=== PATIENT | male | born 1985 | race Caucasian/White ===

== ENCOUNTER 2025-02-28 11:23 | Inpatient (IN) | payer BC ==
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
[2025-02-28 12:04] LABS: Basophils # (A) 0.05 10*3/uL (0.00-0.10); Basophils % (A) 0.5 %; Eosinophils # (A) 0.07 10*3/uL (0.04-0.35); Eosinophils % (A) 0.6 %; HCT 36.6 % (39.6-50.0); HGB 11.9 g/dL (13.0-17.0); Lymphocytes # (A) 1.85 10*3/uL (0.90-5.00); Lymphocytes % (A) 17.1 %; MCH 27.8 pg (27.0-32.0); MCHC 32.5 g/dL (32.0-37.0); MCV 85.5 fL (80.0-97.0); Monocytes # (A) 0.85 10*3/uL (0.20-1.00); Monocytes % (A) 7.8 %; Neutrophils # (A) 7.95 10*3/uL (1.80-7.70); Neutrophils % (A) 73.4 %; Platelet Count 293 10*3/uL (140-440); RBC 4.28 10*6/uL (4.40-5.60); RDW 13.2 % (11.5-14.5); WBC 10.84 10*3/uL (4.50-10.00)
[2025-02-28 12:27] LABS: ALT 32 U/L (4-49); AST 44 U/L (17-59); African American GFR (CKD) >90 (>60 ml/min/1.73 sqM); Albumin 4.2 g/dL (3.5-5.0); Alkaline Phosphatase 59 U/L (38-126); Anion Gap 16 mmol/L; Blood Urea Nitrogen 10 mg/dL (9-20); Calcium 9.8 mg/dL (8.4-10.2); Carbon Dioxide 21 mmol/L (22-30); Chloride 106 mmol/L (98-107); Glucose 103 mg/dL (74-99); Non-African American GFR(CKD) >90 (>60 ml/min/1.73 sqM); Potassium 4.5 mmol/L (3.5-5.1); Sodium 143 mmol/L (137-145); Total Protein 6.9 g/dL (6.3-8.2)
[2025-02-28] MEDS: LORazepam 1 MG/0.5 ML VIAL IM STA (14:21)
[2025-02-28] MEDS ORDERED: NALOXONE 0.4 MG/ML 1 ML VIAL IV PRN (14:47)
[2025-02-28] MEDS ORDERED: ACETAMINOPHEN TAB 325 MG TAB PO PRN (14:47)
[2025-02-28] MEDS: SODIUM CHLORIDE 0.9% 1,000 ML IV SCH (18:42)
[2025-02-28 19:16] LABS: Bilirubin,Urine Negative (Negative); Blood,Urine Negative (Negative); Color,Urine Yellow; Glucose,Urine (UA) Negative (Negative); Hyaline Casts,Urine 4 /lpf (0-2); Ketones,Urine 3+ (Negative); Leukocyte Esterase,Urine Negative (Negative); Mucus,Urine Few /hpf; Nitrite,Urine Negative (Negative); PH, Urine 5.5 (5.0-8.0); Protein,Urine 1+ (Negative); RBC,Urine 2 /hpf (0-5); Specific Gravity,Urine 1.028 (1.001-1.035); Urobilinogen,Urine 2.0 mg/dL (<2.0); WBC,Urine 4 /hpf (0-5)
[2025-02-28 19:21] LABS: Benzodiazepines Screen,Urine Detected (NotDetected); Opiate Screen,Urine Not Detected (NotDetected); Phencyclidine Screen,Urine Not Detected (NotDetected); Urn Cannabinoid Scrn Not Detected (NotDetected)
[2025-02-28 19:22] LABS: Barbiturate Screen,Urine Not Detected (NotDetected); Oxycodone Screen, Urine Not Detected (NotDetected); Tricyclic Antidepressant,Urine Not Detected (NotDetected)
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
[2025-03-01] MEDS: LORazepam 1 MG/0.5 ML VIAL IV PRN (00:19)
[2025-03-01] MEDS ORDERED: HALOPERIDOL LACTATE 5 MG/ML 1 ML VIAL IM PRN ×2 (00:27→10:31)
[2025-03-01] MEDS: HALOPERIDOL LACTATE 5 MG/ML 1 ML VIAL IM STA (00:29)
[2025-03-01 00:38] VITALS: RESP 20
[2025-03-01] MEDS ORDERED: IBUPROFEN 800 MG TAB PO PRN (00:52)
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
[2025-03-01] MEDS: IPRATROPIUM-ALBUTEROL 3 ML NEB INHALATION SCH (07:52)
[2025-03-01] MEDS: LORATADINE 10 MG TAB PO SCH (08:12)
[2025-03-01] MEDS: PRAVASTATIN SODIUM 40 MG TAB PO SCH (08:12)
[2025-03-01] MEDS: CHLORTHALIDONE 25 MG TAB PO SCH (08:12)
[2025-03-01] MEDS: PANTOPRAZOLE 40 MG TABLET PO SCH (08:12)
[2025-03-01] MEDS: glipiZIDE 5 MG TAB PO SCH (08:12)
[2025-03-01] MEDS: ESCITALOPRAM 10 MG TAB PO SCH (08:13)
[2025-03-01 08:56] LABS: Vitamin B12 984.0 pg/mL (200.0-944.0)
[2025-03-01] MEDS ORDERED: NON FORMULARY DRUG (Tadalafil [Tadalafil] 10 MG Tablet) PO PRN (09:00)
[2025-03-01] MEDS ORDERED: FLUTICASONE NASAL 50MCG/SPRAY 16GM BTL EA NOSTRIL PRN (09:00)
[2025-03-01] MEDS ORDERED: LORazepam 1 MG/0.5 ML VIAL IM PRN (10:31)
[2025-03-01] MEDS: LORazepam 1 MG TAB PO PRN (10:41)
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
[2025-03-01 12:38] VITALS: BP 167/93; PULSE 100; TEMP 98.1
--- NOTE | 2025-03-01 13:28 | CT ---
EXAMINATION TYPE: CT brain wo con DATE OF EXAM: 03/01/2025 11:28 AM COMPARISON: None. CLINICAL INDICATION: Male, 40 years old with history of confusion, homocidal/suicidal, TECHNIQUE: Examination was done in axial plane without intravenous contrast. Coronal and sagittal r econstructions performed. CT DLP: 978.2 mGycm, Automated exposure control for dose reduction was used. FINDINGS: There is no evidence of acute intracranial hemorrhage, acute ischemic changes, mass, mass-effect, or extra-axial fluid collection. There is no effacement of cerebral sulci or basal subarachnoid cister ns. There is no hydrocephalus. There is no midline shift. Pena-white matter distinction is preserv ed. Mild volume loss overlying the bilateral cerebral convexities. Leftward nasal septal deviation. Mild mucosal thickening floors of the maxillary sinuses. Moderate wi thin the right ethmoid air cells. Slight leftward nasal septal deviation. Orbits and globes are intac t. Mastoid air cells are well pneumatized. IMPRESSION: 1. Mild volume loss overlying the bilateral cerebral convexities. No acute intracranial abnormality s een. 2. Mild chronic maxillary and ethmoid sinus disease. [facility], , 03/01/2025 1:26 PM
--- NOTE | 2025-03-01 13:32 | P.PN ---
Subjective Progress Note Date: 03/01/25 I am following-up with the patient and it seems the patient attempt to Elope. Also patient was throwing himself on the window and wanted to jump out of window per his nurse. Objective - Vital Signs Vital signs: Vital Signs Temp 98.1 F 03/01/25 12:26 Pulse 100 03/01/25 12:26 Resp 20 03/01/25 12:26 BP 167/93 03/01/25 12:26 Pulse Ox 96 03/01/25 12:26 FiO2 Intake & Output 02/28/25 03/01/25 03/01/25 18:59 06:59 18:59 Intake Total 100 Balance 100 Weight 350.9 kg 153 kg Intake: Oral 100 Other: # Voids 1 1 - Exam General: Sitting in a chair and is not in acute distress. Psych: Pressure speech. Neuro: The patient is awake, alert, oriented to self, place and time. Is following simple commands. No aphasia. No facial weakness. Motor: Strength is lifting all extremities above gravity. Some of the work-up during this hospital visit consisted of: Ammonia level <9 Vitamin B12: 984 TSH: 2.73 GOOD negative urine drug screen was positive for benzos otherwise rest is nondetected. - Labs CBC & Chem 7: 02/28/25 11:56 02/28/25 11:56 Labs: Abnormal Lab Results - Last 24 Hours (Table) 02/28/25 03/01/25 Range/Units 11:24 05:00 Vitamin B12 984.0 H (200.0-944.0) pg/mL Urine Protein 1+ H (Negative) Urine Ketones 3+ H (Negative) Hyaline Casts 4 H (0-2) /lpf Urine Mucus Few H (None) /hpf U Benzodiazepines Scrn Detected H (NotDetected) Assessment and Plan Assessment: This is a 40-year-old gentleman that was transferred from outside facility requiring psychiatric and neurological evaluation for his suicidal ideation and him hearing voices stating it was God asking him to sacrifice his which he attempted with a screwdriver. Overnight patient attempted to elope from this hospital, also throwing himself against the window and wanted to jump off the window. His current status appears psychiatric/psychosis. Suicidal ideation Diabetes Mellitus Hypertension History of suicidal thought History of Depression History of Anxiety Severe Morbid Obesity Plan: Patient completed CT head and pending report but appears negative for acute process. EEG is completed and preliminary report is negative for seizure Psychiatry is consulted. Will defer rest of medical management to primary team and other specialist. The plan is discussed with nurse. If CT head is negative for acute process. Patient is clear from neurological perspective. Time with Patient: Less than 30
[2025-03-01] MEDS: PALIPERIDONE 3 MG TAB.ER.24 PO SCH (14:09)
--- NOTE | 2025-03-01 14:15 | EEG ---
ELECTROENCEPHALOGRAM REPORT CLINICAL HISTORY: This is a 40-year-old gentleman with altered mental status. The video EEG is obtained to evaluate for seizure epileptiform activity. RELEVANT MEDICATION: 1. Ativan. 2. Haldol. EEG TYPE: This is a routine 21 channel EEG with video using the 10/20 electrode placement system. DESCRIPTION: Wakefulness and brief drowsiness are obtained. During awake state, the posterior- dominant rhythm consists of [id number] voltage of 11 hertz activity that is well modulated and well sustained. There is no physiological stage 2 sleep architecture. There is no focal slowing. Interictal and ictal is none. ACTIVATION PROCEDURE: Photic stimulation did not evoke a posterior driving response. There is no abnormality during the photic stimulation. Hyperventilation is not performed. CLINICAL INTERPRETATION: This is a normal routine EEG during awake and brief drowsy state. There is no focal slowing, epileptiform discharge, or seizure on the EEG. A normal routine EEG does not rule out underlying seizures. Clinical correlation is recommended. MMMONTY / IJN: [id number] /
[2025-03-01] MEDS ORDERED: TAMSULOSIN 0.4 MG CAP.ER.24H PO SCH (21:00)
[2025-03-03] MEDS ORDERED: NON FORMULARY DRUG (Tirzepatide [Mounjaro] 15 MG/0.5 ML Pen.Injctr) SQ SCH (09:00)
== END 2025-03-01 18:23 | DRG 885 ==
LOC: EC 11:23 → 5NMEDONC 14:49
PROVIDERS: ADMIT Family Medicine; ATTEND Family Medicine
DX: F23 Brief psychotic disorder (principal); R45.850 Homicidal ideations; E11.9 Type 2 diabetes mellitus without complications; E66.01 Morbid (severe) obesity due to excess calories; I10 Essential (primary) hypertension; F32.A Depression, unspecified; R45.851 Suicidal ideations; F41.9 Anxiety disorder, unspecified; Z79.84 Long term (current) use of oral hypoglycemic drugs; Z79.899 Other long term (current) drug therapy
CPT/HCPCS: 36415; 70450; 80053; 80306; 80320; 81001; 82140; 82607; 84443; 85025; 86038; 93005; 95819; 96372; 99285